=== PATIENT | male | born 1940 | race African-American/Black ===

== ENCOUNTER 2016-09-09 20:59 | Emergency (ER) | payer OTHER, MEDICAID ==
[~2016-09-09] VITALS: Ht 172.7 cm; Wt 68.0 kg
[2016-09-09 21:36] LABS: BASO # 0.1 x10^3/uL (0.0-0.2); BASO % 1 % (0-3); EOS % 3 % (0-3); HEMATOCRIT 44.8 % (39.0-53.0); HEMOGLOBIN 14.5 g/dL (13.0-17.5); LYMPH # 3.2 x10^3/uL (1.0-4.8); LYMPH % 49 % (24-48); MEAN CORPUSCULAR HEMOGLOBIN 31 pg (25-35); MEAN CORPUSCULAR HGB CONC 32 g/dL (31-37); MEAN CORPUSCULAR VOLUME 94 fL (79-100); MONO % 16 % (0-9); NEUT % 32 % (31-73); PLATELET COUNT 299 x10^3/uL (140-400); RED BLOOD COUNT 4.76 x10^6/uL (4.30-5.70); RED CELL DISTRIBUTION WIDTH 16.4 % (11.5-14.5); WHITE BLOOD COUNT 6.5 x10^3/uL (4.0-11.0)
[2016-09-09 21:54] LABS: CALCIUM 8.9 mg/dL (8.5-10.1); GFR 73.2; POTASSIUM 3.2 mmol/L (3.5-5.1)
--- NOTE | 2016-09-09 22:24 | RAD ---
PROCEDURE CT head and maxillofacial without contrast. HISTORY Fall. Forehead laceration. TECHNIQUE Noncontrast CT head was obtained. CT maxillofacial includes axial images and coronal and sagittal re-formatted images. One or more of the following individualized dose reduction techniques were utilized for this exam: 1. Automated exposure control. 2. Adjustment of the mA and/or kV according to patient's size. 3. Use of iterative reconstruction technique. COMPARISON None. FINDINGS Head: There is prominence of the ventricles and sulci. There are areas of decreased attenuation throughout the supratentorial white matter, nonspecific but most suggestive of mild to moderate small vessel ischemic disease. There is no acute intracranial hemorrhage or extra-axial fluid collection. There is no mass effect or midline shift. Foster-white differentiation is preserved. There is no depressed skull fracture. There is a scalp hematoma in the right frontal region. Maxillofacial: There is no orbital fracture. Zygomatic arches are intact. Nasal bones are intact. Pterygoid plates are intact. Mandible is intact. There is bilateral ethmoid mucosal thickening. There is right maxillary mucosal thickening. Left maxillary sinus is opacified. There is minimal sphenoid mucosal thickening. Frontal sinuses are clear. There is no wall sclerosis. There are dental caries with periapical lucencies noted. IMPRESSION Head: 1. Brain parenchymal volume loss and mild to moderate probable small-vessel ischemic disease. 2. No acute intracranial findings. Maxillofacial: 1. Negative for maxillofacial fracture. 2. Sinus disease. 3. Poor dentition with dental caries and apical lucencies noted, dental radiographs would be more sensitive. Electronically signed by: Geoffrey Olivas MD (Sep 09, 2016 22:23:30)
--- NOTE | 2016-09-09 22:29 | RAD ---
PROCEDURE CT cervical spine without contrast. HISTORY Fall. Pain. TECHNIQUE Axial images and coronal and sagittal re-formatted images are provided. One or more of the following individualized dose reduction techniques were utilized for this exam: 1. Automated exposure control. 2. Adjustment of the mA and/or kV according to patient's size. 3. Use of iterative reconstruction technique. COMPARISON None. FINDINGS There is no fracture or dislocation. Prevertebral soft tissues are within normal limits. Craniovertebral junction is unremarkable. Disc osteophyte complexes and uncinate process spurring are noted throughout the cervical spine. There may be mild canal stenosis at C4-C5. There are several levels of foraminal narrowing, greatest at C4-C5. Lung apices are clear with mild emphysema noted. Esophagus is distended with debris present. There is cerumen in the right external auditory canal. There are carotid artery calcifications. IMPRESSION Negative for fracture or dislocation. Degenerative changes. Electronically signed by: Geoffrey Olivas MD (Sep 09, 2016 22:27:27)
[2016-09-09 22:55] LABS: BILIRUBIN,URINE NEGATIVE (NEG); GLUCOSE,URINE NEGATIVE (NEG); NITRITE,URINE NEGATIVE (NEG); PH,URINE 5.5; PROTEIN,URINE 30 mg/dL (NEG-TRACE)
[2016-09-09 23:00] LABS: BARBITURATES NEG (NEG); BENZODIAZEPINES NEG (NEG); CANNABINOIDS NEG (NEG); COCAINE NEG (NEG); ETHANOL, URINE POS (NEG); METHADONE NEG (NEG); OPIATES NEG (NEG); PHENCYCLIDINE NEG (NEG)
[2016-09-09 23:02] LABS: BACTERIA,URINE 0 /HPF (0-FEW); RBC,URINE 0 /HPF (0-2); WBC,URINE 0 /HPF (0-4)
[2016-09-09] MEDS ORDERED: IV NORMAL SALINE 1000ML BAG 1,000 ML IV ONE (23:30)
[2016-09-09] MEDS ORDERED: LIDOCAINE 1%/EPI 1:100,000 20 ML VIAL. INJ ONE (23:30)
[2016-09-09] MEDS ORDERED: POTASSIUM CHLORIDE 20 MEQ TABLET.ER. PO ONE (23:30)
[2016-09-10] MEDS ORDERED: NEOMY/BACITR/POLYMYXIN OINT PACKET. TP ONE (01:00)
--- NOTE | 2016-09-10 01:32 | PHYS DOC ---
Past Medical History Past Medical History: Hypertension Past Surgical History: No Surgical History Additional Information: PAD smoker Alcohol Use: Heavy Drug Use: None Adult General Chief Complaint Chief Complaint: LACERATION/AVULSION HPI HPI Patient is a 75 year old female who presents after fall. Patient had been drinking today, reportedly fell down in parking lot. EMS was called, and patient brought to the emergency department for evaluation. Patient reports drinking a lot today. He denies any complaints of pain, and is more concerned that he does not know where his car is. No other acute complaints. Unsure of last tetanus booster. Review of Systems Review of Systems Constitutional: Denies fever or chills HENT: Laceration to forehead Respiratory: Denies cough or shortness of breath Cardiovascular: Denies chest pain GI: Denies abdominal pain, nausea, vomiting, or diarrhea Musculoskeletal: Denies back pain or joint pain Neurologic: Denies headache, focal weakness or sensory changes Current Medications Current Medications Current Medications Medications (Trade) Dose Ordered Sig/Jenifer Start Time Stop Time Status Last Admin Dose Admin Ibuprofen (Motrin) 600 mg 1X ONCE 09/10/16 02:15 09/10/16 02:18 DC 09/10/16 02:13 600 MG Lidocaine/ Epinephrine (Xylocaine 1%-Epi 1:100,000) 20 ml 1X ONCE 09/09/16 23:30 09/09/16 23:31 DC 09/10/16 00:38 20 ML Neomycin/ Polymyxin/ Bacitracin (Triple Antibiotic Ointment) 1 pkt 1X ONCE 09/10/16 01:00 09/10/16 01:01 DC 09/10/16 01:00 1 PKT Potassium Chloride (Klor-Con) 40 meq 1X ONCE 09/09/16 23:30 09/09/16 23:31 DC 09/10/16 02:13 40 MEQ Sodium Chloride (Iv Sodium Chloride 0.9% 1000ml Bag) 1,000 ml @ 1,000 mls/hr 1X ONCE 09/09/16 23:30 09/10/16 00:29 DC 09/09/16 23:30 1,000 MLS/HR Tetanus/ Diphtheria Toxoids Adsorbed (Tenivac Syringe) 0.5 ml ONCE ONCE 09/10/16 01:45 09/10/16 01:46 DC 09/10/16 02:12 0.5 ML Allergies Allergies Allergies Coded Allergies Type Severity Reaction Last Updated Verified No Known Drug Allergies 09/09/16 No Physical Exam Physical Exam Constitutional: Well developed, well nourished, non-toxic appearance, intoxicated HENT: Normocephalic, bilateral external ears normal; complex stellate laceration to R forehead Eyes: PERRL, EOMI, conjunctiva normal, no discharge Neck: Normal range of motion, no stridor. No midline TTP, no stepoff Cardiovascular: Heart rate normal, regular rhythm, no murmur Lungs & Thorax: Bilateral breath sounds clear to auscultation Abdomen: Bowel sounds normal, soft, non-distended, no TTP Skin: Warm, dry, no erythema, no rash Back: No midline TTP, no stepoff Extremities: No obvious deformity, no edema Neurologic: Somnolent but easily aroused, GCS 15, CN II-XII grossly intact with exception of slurred speech, strength intact and symmetrical throughout, sensation to light touch intact throughout Current Patient Data Vital Signs Vital Signs Date Time Temp Pulse Resp B/P Pulse Ox O2 Delivery O2 Flow Rate FiO2 09/10/16 03:30 89 18 107/71 94 Room Air 09/09/16 21:25 97.7 97.7 Lab Values Laboratory Tests Test 09/09/16 21:08 09/09/16 22:30 White Blood Count 6.5x10^3/uL (4.0-11.0) Red Blood Count 4.76x10^6/uL (4.30-5.70) Hemoglobin 14.5g/dL (13.0-17.5) Hematocrit 44.8% (39.0-53.0) Mean Corpuscular Volume 94fL (79-100) Mean Corpuscular Hemoglobin 31pg (25-35) Mean Corpuscular Hemoglobin Concent 32g/dL (31-37) Red Cell Distribution Width 16.4% (11.5-14.5) H Platelet Count 299x10^3/uL (140-400) Neutrophils (%) (Auto) 32% (31-73) Lymphocytes (%) (Auto) 49% (24-48) H Monocytes (%) (Auto) 16% (0-9) H Eosinophils (%) (Auto) 3% (0-3) Basophils (%) (Auto) 1% (0-3) Neutrophils # (Auto) 2.1x10^3uL (1.8-7.7) Lymphocytes # (Auto) 3.2x10^3/uL (1.0-4.8) Monocytes # (Auto) 1.0x10^3/uL (0.0-1.1) Eosinophils # (Auto) 0.2x10^3/uL (0.0-0.7) Basophils # (Auto) 0.1x10^3/uL (0.0-0.2) Sodium Level 138mmol/L (136-145) Potassium Level 3.2mmol/L (3.5-5.1) L Chloride Level 102mmol/L (98-107) Carbon Dioxide Level 23mmol/L (21-32) Anion Gap 13 (6-14) Blood Urea Nitrogen 19mg/dL (8-26) Creatinine 1.0mg/dL (0.7-1.3) Estimated GFR (Cockcroft-Gault) 73.2 Glucose Level 126mg/dL (70-99) H Calcium Level 8.9mg/dL (8.5-10.1) Ethyl Alcohol Level 298mg/dL (0-10) H Urine Collection Type Unknown Urine Color Yellow Urine Clarity Clear Urine pH 5.5 Urine Specific Luther 1.010 Urine Protein 30mg/dL (NEG-TRACE) Urine Glucose (UA) Negativemg/dL (NEG) Urine Ketones (Stick) Negativemg/dL (NEG) Urine Blood Small (NEG) Urine Nitrite Negative (NEG) Urine Bilirubin Negative (NEG) Urine Urobilinogen Dipstick 1.0mg/dL (0.2 mg/dL) Urine Leukocyte Esterase Negative (NEG) Urine RBC 0/HPF (0-2) Urine WBC 0/HPF (0-4) Urine Bacteria 0/HPF (0-FEW) Urine Mucus Slight/LPF Urine Opiates Screen Neg (NEG) Urine Methadone Screen Neg (NEG) Urine Barbiturates Neg (NEG) Urine Phencyclidine Screen Neg (NEG) Urine Amphetamine/Methamphetamine Neg (NEG) Urine Benzodiazepines Screen Neg (NEG) Urine Cocaine Screen Neg (NEG) Urine Cannabinoids Screen Neg (NEG) Urine Ethyl Alcohol Pos (NEG) Laboratory Tests 09/09/16 21:08 Laboratory Tests 09/09/16 21:08 EKG EKG EKG (my read): sinus rhythm, rate 90, RAD, IVCD, QTc 509ms, nonspecific ST changes Radiology/Procedures Radiology/Procedures CT head and max/face: IMPRESSION Head: 1. Brain parenchymal volume loss and mild to moderate probable small-vessel ischemic disease. 2. No acute intracranial findings. Maxillofacial: 1. Negative for maxillofacial fracture. 2. Sinus disease. 3. Poor dentition with dental caries and apical lucencies noted, dental radiographs would be more sensitive. CT C-spine: IMPRESSION Negative for fracture or dislocation. Degenerative changes. CXR (my read): No acute abnormality Course & Med Decision Making Course & Med Decision Making Pertinent Labs and Imaging studies reviewed. (See chart for details) Patient is 75-year-old male who presents after fall while intoxicated. Has laceration to right forehead but will need repair. EKG, chest x-ray, CT head/ max face/c-spine, labs ordered to evaluate. IV fluid bolus ordered. Imaging results as above. Labs notable for elevated ethanol level. Mild hypokalemia, oral replacement ordered. Tetanus booster given. Laceration repaired without complication. Discussed results with patient. Patient observed for a period of time while in the Emergency Department; he was able to arrange transport via family member, and when he was sober enough to walk without assistance and speak without slurring he was discharged under the supervision of family member. On repeat assessment patient only had c/o soreness in forehead where laceration is. Discharged with instructions for follow up and return precaution. Dragon Disclaimer Dragon Disclaimer This electronic medical record was generated, in whole or in part, using a voice recognition dictation system. PROCEDURE Procedure Indication: Laceration to forehead Procedure: The patient was placed in the appropriate position and anesthesia around the laceration was achieved with 1% lidocaine with epinephrine. The area was then thoroughly irrigated with sterile saline. The laceration was closed with 12 sutures of 4-0 Ethilon. Antibiotic ointment was applied to the wound area and it was dressed by nursing. Total repaired wound length: 6 cm, stellate and complicated. The patient tolerated the procedure well. Complications: None. Departure Departure Impression: Primary Impression: Fall Additional Impressions: Laceration Alcohol intoxication Disposition: HOME, SELF-CARE Condition: IMPROVED Referrals: UNKNOWN PCP NAME (PCP) Patient Instructions: Alcohol Intoxication, Facial Laceration Additional Instructions: Thank you for allowing us to provide care today in the Emergency Department. The laceration (cut) to your forehead required 12 stitches to repair. These will need to be taken out in about 5 days. You can return to the Emergency Department, see your primary care doctor, or go to an urgent care for this. Schedule a follow up appointment with your primary care doctor. Return promptly to the Emergency Department if you develop any new or concerning symptoms, such as signs of infection around your wound. Problem Qualifiers WHITNEY PAREDES MD Sep 10, 2016 01:32
[2016-09-10] MEDS ORDERED: TETANUS AND DIPHTHERIA TOX/PF 0.5 ML DISP.SYRIN. VAX IM ONE (01:45)
[2016-09-10] MEDS ORDERED: IBUPROFEN 600 MG TABLET. PO ONE (02:15)
[2016-09-10 03:30] VITALS: BP 107/71
--- NOTE | 2016-09-10 06:31 | EKG ---
[facility] [address] [place] [address] Test Date: 2016-09-09 Test Time: 22:32:42 Pat Name: NIA CANALES Department: Room: Gender: M Senior [employer] Developer: : 1940 Requested By: WHITNEY PAREDES Order Number: [id number] Reading MD: Measurements Intervals [place] Rate: 90 P: 56 ID: [id number] QRS: 141 QRSD: 128 T: 31 QT: 412 QTc: 509 Interpretive Statements SINUS RHYTHM LEFT ATRIAL ABNORMALITY ABNORMAL RIGHT AXIS DEVIATION NON SPECIFIC INTRAVENTRICULAR BLOCK RIGHT VENTRICULAR HYPERTROPHY QRS(T) CONTOUR ABNORMALITY CONSIDER ANTEROSEPTAL MYOCARDIAL DAMAGE ABNORMAL ECG RI6.01 No previous ECG available for comparison
--- NOTE | 2016-09-10 07:39 | RAD ---
Indication fall. Protocol study. A single view of the chest was obtained. No prior imaging of the chest is available. Slightly tortuous thoracic aorta is noted. The mediastinum has a normal appearance. The heart and pulmonary vessels are normal. There is slight elevation of the left hemidiaphragm, likely incidental. An acute parenchymal infiltrate is not seen. Significant pleural fluid is not present. An acute bony finding is not seen. IMPRESSION: No acute finding apparent in the chest
== END 2016-09-10 03:30 | disposition home or self-care (01) ==
LOC: ER 20:59
DX: S01.81XA Laceration without foreign body of other part of head, initial encounter (principal); F17.200 Nicotine dependence, unspecified, uncomplicated; I10 Essential (primary) hypertension; E87.6 Hypokalemia; F10.129 Alcohol abuse with intoxication, unspecified; Y90.9 Presence of alcohol in blood, level not specified; W19.XXXA Unspecified fall, initial encounter; Y93.89 Activity, other specified; Y92.481 Parking lot as the place of occurrence of the external cause; Y99.8 Other external cause status
CPT/HCPCS: 12013; 36415; 70450; 70486; 71010; 72125; 80048; 80305; 80320; 81001; 85027; 90471; 90714; 93005; 96360; 96361; 99285; J3490; J7030; 82507; G0480; G0481